=== PATIENT | female | born 1970 | race Caucasian/White ===

== ENCOUNTER 2020-01-15 14:53 | Emergency (ER) | payer MEDICAID, OTHER ==
[~2020-01-15] VITALS: Ht 165.1 cm; Wt 55.0 kg
[~2020-01-15 14:53] MED LIST: CLIN-97 PO
[2020-01-15 14:56] VITALS: BP 101/70
[2020-01-15] MEDS ORDERED: HYDR-3686 PO (15:45)
== END 2020-01-15 16:00 | disposition home or self-care (01) ==
LOC: ER 14:53
DX: F15.90 Other stimulant use, unspecified, uncomplicated (principal); F12.90 Cannabis use, unspecified, uncomplicated; Z79.899 Other long term (current) drug therapy
CPT/HCPCS: 99283

== ENCOUNTER 2020-10-31 13:08 | Emergency (ER) | payer MEDICAID, OTHER ==
[~2020-10-31] VITALS: Ht 170.2 cm; Wt 57.3 kg
[2020-10-31 13:12] VITALS: BP 126/83
== END 2020-10-31 13:37 | disposition home or self-care (01) ==
LOC: ER 13:08
DX: F15.10 Other stimulant abuse, uncomplicated (principal); Z20.828 Contact with and (suspected) exposure to other viral communicable diseases; F12.90 Cannabis use, unspecified, uncomplicated; Z79.2 Long term (current) use of antibiotics
CPT/HCPCS: 36415; 87635; 99283

== ENCOUNTER 2020-11-09 08:59 | Emergency (ER) | payer MEDICAID ==
[~2020-11-09] VITALS: Ht 167.6 cm; Wt 58.0 kg
[2020-11-09 09:03] VITALS: BP 112/69
== END 2020-11-09 10:08 | disposition home or self-care (01) ==
LOC: ER 09:00
DX: R00.0 Tachycardia, unspecified (principal); F12.90 Cannabis use, unspecified, uncomplicated; F15.90 Other stimulant use, unspecified, uncomplicated; Z13.9 Encounter for screening, unspecified; Z79.2 Long term (current) use of antibiotics
CPT/HCPCS: 99281

== ENCOUNTER 2021-01-28 12:00 | Emergency (ER) | payer MEDICAID ==
[~2021-01-28] VITALS: Ht 165.1 cm; Wt 58.7 kg
--- NOTE | 2021-01-28 13:11 | NUR ---
Ian López at bedside.
[2021-01-28] MEDS ORDERED: morphine 4 MG/ML inj SYRINge IV ONE (13:20)
[2021-01-28] MEDS ORDERED: famotidine/PF 10 mg/ml inj IV ONE (13:20)
[2021-01-28] MEDS ORDERED: ondansetron/PF 4mg/2ml inj IV ONE (13:20)
[2021-01-28] MEDS ORDERED: normal saline 1000ml 1,000 ML IV ONE (13:20)
[2021-01-28 13:21] LABS: CLARITY,URINE CLEAR (Clear); COLOR,URINE STRAW (Yellow); GLUCOSE, URINE NEGATIVE (Neg); KETONES,URINE NEGATIVE (Neg); LEUKOCYTE ESTERASE ,URINE NEGATIVE (Neg); NITRITES, URINE NEGATIVE (Neg); OCCULT BLOOD,URINE SMALL (Neg); PROTEIN,URINE NEGATIVE (Neg); UA COLLECTION TYPE VOIDED; URINE HCG NEGATIVE (NEG); UROBILINOGEN,URINE 0.2 E.U/dL (0.2-1.0)
[2021-01-28 13:32] LABS: RBC,URINE NONE SEEN /HPF (0-2); WBC,URINE NONE SEEN /HPF (0-4)
[2021-01-28 13:33] LABS: BACTERIA,URINE NONE SEEN /HPF (Neg); MUCUS STRANDS NONE SEEN /LPF (Neg); SQUAMOUS EPITHELIAL CELL,UR NONE SEEN /LPF (FEW)
[2021-01-28 13:51] LABS: BASOPHILS # (AUTO) 0.1 X10'3 (0-0.2); BASOPHILS % (AUTO) 0.6 % (0-1); EOSINOPHILS # (AUTO) 0.2 X10'3 (0-0.9); EOSINOPHILS % (AUTO) 2.3 % (0-6); HEMATOCRIT 41.7 % (35.0-45.0); HEMOGLOBIN 14.1 g/dl (12.0-16.0); LYMPHOCYTES # (AUTO) 2.2 X10'3 (1.1-4.8); LYMPHOCYTES % (AUTO) 23.6 % (21-51); MEAN CORPUSCULAR HEMOGLOBIN 31.4 PG (27.0-31.0); MEAN CORPUSCULAR HGB CONC 33.9 g/dL (33.0-36.5); MEAN CORPUSCULAR VOLUME 92.6 FL (78-98); MONOCYTES # (AUTO) 0.6 X10'3 (0-0.9); MONOCYTES % (AUTO) 6.6 % (2-12); NEUTROPHILS # (AUTO) 6.2 X10'3 (1.8-7.7); NEUTROPHILS % (AUTO) 66.9 % (42-75); PLATELET COUNT 282 X10'3 (140-440); RED CELL DISTRIBUTION WIDTH 13.1 % (11.5-14.5); WHITE BLOOD COUNT 9.3 X10'3 (4.5-11.0)
[2021-01-28 14:07] LABS: ALANINE AMINOTRANSFERASE 17 U/L (12-78); ALBUMIN 3.6 G/DL (3.4-5.0); ALKALINE PHOSPHATASE 81 IU/L (46-116); ANION GAP 9 (8-16); ASPARTATE AMINO TRANSFERASE 12 U/L (10-37); BILIRUBIN,TOTAL 0.2 MG/DL (0.1-1.0); BLOOD UREA NITROGEN 17 MG/DL (7-18); BUN/CREATININE RATIO 22.1 (6.6-38.0); CALCIUM 9.4 MG/DL (8.5-10.1); CHLORIDE 105 MMOL/L (99-107); CREATININE 0.77 MG/DL (0.40-0.90); GLUCOSE 100 MG/DL (70-104); LIPASE 137 U/L (73-393); SODIUM 142 MMOL/L (135-145); TOTAL CARBON DIOXIDE 27.7 MMOL/L (24-32); TOTAL PROTEIN 7.3 G/DL (6.4-8.2); eGFR 80 ML/MIN
[2021-01-28] MEDS ORDERED: ONDA4TAB6 PO (14:42)
[2021-01-28] MEDS ORDERED: FAMO-128 PO (14:42)
[2021-01-28] MEDS ORDERED: HYDR-3965 PO (14:51)
[2021-01-28 15:04] VITALS: BP 123/85
== END 2021-01-28 15:05 | disposition home or self-care (01) ==
LOC: ER 12:01
DX: R10.11 Right upper quadrant pain (principal); F12.90 Cannabis use, unspecified, uncomplicated; F15.90 Other stimulant use, unspecified, uncomplicated; Z79.899 Other long term (current) drug therapy
CPT/HCPCS: 36415; 76700; 80053; 81001; 81025; 83690; 85025; 93005; 96361; 96374; 96375; 99285; J2270; J2405; J3490; J7030

== ENCOUNTER 2024-08-10 15:24 | Emergency (ER) | payer MEDICAID ==
[~2024-08-10] VITALS: Ht 162.6 cm; Wt 56.3 kg
[~2024-08-10 15:24] MED LIST changes: +FAMO-128 PO; +ONDA4TAB6 PO
[2024-08-10 15:37] VITALS: BP 139/90; TEMP 98.3
[2024-08-10] MEDS ORDERED: ACET-1025 PO (17:28)
[2024-08-10 17:49] VITALS: PULSE 78; RESP 16; O2SAT 99
== END 2024-08-10 17:53 | disposition home or self-care (01) ==
LOC: ER 15:25
DX: S52.041A Displaced fracture of coronoid process of right ulna, initial encounter for closed fracture (principal); F12.90 Cannabis use, unspecified, uncomplicated; F15.90 Other stimulant use, unspecified, uncomplicated; Z79.1 Long term (current) use of non-steroidal anti-inflammatories (NSAID); Z79.899 Other long term (current) drug therapy; W19.XXXA Unspecified fall, initial encounter; Y93.89 Activity, other specified; Y92.89 Other specified places as the place of occurrence of the external cause; Y99.8 Other external cause status
CPT/HCPCS: 29125; 73080; 73110; 99284; A4565; A6446; A6449